=== PATIENT | male | born 1960 | race Two or more races ===

== ENCOUNTER 2023-09-08 19:10 | Emergency (ER) | payer OTHER ==
[~2023-09-08] VITALS: Ht 172.7 cm; Wt 77.1 kg
[~2023-09-08 19:10] MED LIST: ZITHROMAX500 MG PO
[2023-09-08 21:45] LABS: HEMATOCRIT 39.1 % (39.0-48.0); HEMOGLOBIN 13.6 g/dL (13-16.00); MEAN CELL VOLUME 90.8 fL (80.0-100.00); MEAN CORPUSCULAR HEMOGLOBIN 31.6 pg (27.00-32.0); MEAN CORPUSCULAR HGB CONC 34.8 g/dl (32.0-36.0); PLATELET COUNT 163 K/uL (150-450); RED BLOOD COUNT 4.31 M/uL (4.00-6.00); RED CELL DISTRIBUTION WIDTH 13.6 % (11.5-14.5)
== END 2023-09-08 23:00 | disposition home or self-care (01) ==
LOC: ER 19:11
PROVIDERS: Emergency Medicine Pediatric Emergency Medicine
DX: U07.1 COVID-19 (principal); R50.9 Fever, unspecified; J02.8 Acute pharyngitis due to other specified organisms